=== PATIENT | female | born 1985 | race Caucasian/White ===

== ENCOUNTER 2019-01-02 10:01 | Inpatient (IN) | payer OTHER ==
[~2019-01-02] VITALS: Ht 165.1 cm; Wt 132.7 kg
[~2019-01-02 10:01] MED LIST: MULTI VITAMINS1 TAB PO
[2019-01-24] VITALS (701 sets, daily range): BP systolic 11–137; BP diastolic 62–76; PULSE 72–84; TEMP 97.7–98.1; O2SAT 89–99
[2019-01-24] MEDS ORDERED: LAXATIVE FOR WOM5 MG PO (05:58)
--- NOTE | 2019-01-24 06:14 | NUR ---
The patient ambualted back to [facility] independently using a steady gait and appeared to tolerate the activity well. Vital signs obtained. Consent signed. Urine sample obtained to check for with a negative result. 18G IV started in left hand with one stick, LR infusing without difficulty. Heart Reg. Lungs clear. Bowel sounds audible. brought back to be at her bedside. Call light is within reach. The patient denies any further needs at this time. Will continue to monitor the patient.
--- NOTE | 2019-01-24 11:50 | NUR ---
Report received from PACU and pt brought to ICU room 3 by bed. Pt placed on monitor and assessment complete. See charting. POLICE OR PATROL PARK OFFICER started and pt instructed on use, also provided education. Will continue to follow.
--- NOTE | 2019-01-24 16:18 | NUR ---
Pt ambulated length of walter and back. Tolerated well. Is now sitting up in chair. Will continue to follow.
--- NOTE | 2019-01-24 19:17 | NUR ---
Report given to Gregory BRAND and Levy and care transfered.
--- NOTE | 2019-01-24 20:00 | NUR ---
PATIENT RESTING VISITING WITH FAMILY, PATIENT IS PLEASENT AND DENIES DISCOMFORT
[2019-01-25] VITALS (524 sets, daily range): BP systolic 110–130; BP diastolic 55–79; PULSE 71–87; TEMP 97.8–98.8; O2SAT 87–99
--- NOTE | 2019-01-25 00:32 | NUR ---
PATIENT ASLEEP, AWAKENS EASILY, PATIENT STATES PAIN INCREASING AT SURGICAL SITES, RIKKI DRAIN HAS SCANT FLOW RED, ABDOMIN SOFT, SITES SECURED AND BANDAGED
[2019-01-25 06:47] LABS: BASO % 0.2 % (0.0-2.0); EOS % 0.3 % (0-4.0); GRAN # 6.4 (1.4-6.5); GRAN % 69.2 % (42.2-75.2); HEMOGLOBIN 11.6 g/dl (12.5-16.0); LYMPH # 2.1 (1.2-3.4); LYMPH % 22.3 % (20.0-51.0); MEAN CELL VOLUME 86 fl (80.0-100.0); MEAN CORPUSCULAR HEMOGLOBIN 28 pg (27.0-31.0); MEAN CORPUSCULAR HGB CONC 33 g/dl (33.0-37.0); MEAN PLATELET VOLUME 10.2 fl (7.4-10.4); MONO # 0.7 (0.1-0.6); MONO % 7.8 % (1.7-9.3); PLATELET COUNT 246 K/mm3 (130-400); RED BLOOD COUNT 4.11 M/mm3 (4.10-5.30); REDCELL DISTRIBUTION WIDTH-CV 14.1 % (11.5-14.5)
[2019-01-25 06:51] LABS: ALBUMIN 3.7 gm/dL (3.5-5.0); BILIRUBIN,TOTAL 0.5 mg/dL (0.0-1.0); CALCIUM 8.4 mg/dL (8.4-10.2); CREATININE, serum 0.61 (0.52-1.25); POTASSIUM 3.5 mmol/L (3.4-5.0); TOTAL PROTEIN 6.7 gm/dL (6.4-8.2)
[2019-01-25 07:00] LABS: HEMATOCRIT 35.3 % (37.0-47.0)
--- NOTE | 2019-01-25 07:10 | NUR ---
Bedside report recieved from Levy BRAND and Gregory BRAND. Patient awake in bed, participates in report. MIG TIG WELDER verified with Gregory BRAND, patient states understanding on how to use. Denies needs or pain at this time. Call light and MIG TIG WELDER demand button in reach.
--- NOTE | 2019-01-25 19:40 | NUR ---
Report given to Rosette RN. Will transfer up to surgical floor.
--- NOTE | 2019-01-25 19:50 | NUR ---
Patient taken up to room 348 on surgical floor, nurse notified of arrival.
--- NOTE | 2019-01-25 20:00 | NUR ---
Patients IV site to left hand swollen and sore. DC'd at this time.
--- NOTE | 2019-01-25 21:00 | NUR ---
Restarted #22 Insyte to right hand on first attempt. IVF connected and infusing without problem. Patient taking clear liquids without problem. Has voided x1 since arrival to floor. RIKKI drain compressed and to bulb suction. Lap sites with bandaids D/I.
[2019-01-26] VITALS (188 sets, daily range): BP systolic 99–130; BP diastolic 43–66; PULSE 73–80; TEMP 98.1–98.4; O2SAT 100
--- NOTE | 2019-01-26 00:45 | NUR ---
MEDICATED WITH NORCO 5/325 1 TAB FOR PAIN 5/10 TO ABDOMEN.
--- NOTE | 2019-01-26 04:45 | NUR ---
RIKKI DRAINAGE SENT TO LAB. PATIENT RESTING WELL.
--- NOTE | 2019-01-26 06:05 | NUR ---
Patient takes Barre 5/325mg 1 tab for pain 5/10 to abdomen.
--- NOTE | 2019-01-26 08:00 | NUR ---
PATIENT IS RESTING IN BED THIS MORNING. PATIENT IS A&OX4. VSS. BOWEL SOUNDS ACTIVE ALL FOUR QUADRANTS. PATIENT TOLERATING POST-OP GASTRIC BYPASS DIET WITHOUT ANY COMPLAINTS OF N/V. ABDOMINAL LAP SITES X5 DRESSED WITH BANDAIDS AND ARE CD&I. RIGHT-SIDED ABDOMINAL RIKKI DRAIN TO BULB SUCTION WITH BRIGHT RED DRAINAGE PRESENT IN THE RIKKI BULB. POSITIVE PEDAL PULSES EQUAL BILATERALLY. SCD'S TO BLE. IV FLUIDS INFUSING TO RIGHT HAND IV VIA PUMP. CALL LIGHT WITHIN REACH. PATIENT DENIES ANY NEEDS AT THIS TIME.
[2019-01-26 09:55] LABS: BASO % 0.3 % (0.0-2.0); EOS # 0.1 (0.0-0.7); EOS % 2.2 % (0-4.0); GRAN % 63.7 % (42.2-75.2); HEMOGLOBIN 11.6 g/dl (12.5-16.0); LYMPH # 1.6 (1.2-3.4); MEAN CELL VOLUME 86 fl (80.0-100.0); MEAN CORPUSCULAR HEMOGLOBIN 28 pg (27.0-31.0); MEAN CORPUSCULAR HGB CONC 33 g/dl (33.0-37.0); MEAN PLATELET VOLUME 10.3 fl (7.4-10.4); MONO # 0.5 (0.1-0.6); MONO % 8.5 % (1.7-9.3); PLATELET COUNT 237 K/mm3 (130-400); RED BLOOD COUNT 4.11 M/mm3 (4.10-5.30); REDCELL DISTRIBUTION WIDTH-CV 14.1 % (11.5-14.5)
[2019-01-26 09:58] LABS: HEMATOCRIT 35.3 % (37.0-47.0)
--- NOTE | 2019-01-26 10:28 | NUR ---
Initial visit; Patient thanked Manufacturing Industrial Engineer for looking in on her and offering encouragement and God's blessings.
[2019-01-26] MEDS ORDERED: PRILOSEC 20MG20 MG PO (10:35)
[2019-01-26] MEDS ORDERED: ZOFRAN 4MG T4 MG/TAB PO (10:35)
[2019-01-26] MEDS ORDERED: NORCO 325 MG-51 TAB PO (10:35)
--- NOTE | 2019-01-26 12:17 | NUR ---
RIGHT HAND INT DISCONTINUED PER PENDING DISCHARGE. TIP INTACT. PATIENT TOLERATED WELL.
--- NOTE | 2019-01-26 12:50 | NUR ---
Debridging Machine Operator met with patient and patient's , Ishmael (ph#[phone]) to discuss discharge planning. Patient lives on [place] with her and utilizes [facility] for primary care and medications. Patient is independent with [facility] and does not use any DME. Patient does not have Advance Directives in place but states she has the paperwork to fill out. Patient will return home upon discharge.
--- NOTE | 2019-01-26 13:30 | NUR ---
DISCHARGE INSTRUCTIONS REVIEWED WITH PATIENT AND . ALL QUESTIONS ANSWERED. PATIENT PERSONAL BELONGINGS GATHERED.
--- NOTE | 2019-01-26 14:00 | NUR ---
PATIENT TAKEN TO PERSONAL VEHICLE VIA WHEELCHAIR BY SURGICAL STAFF. PATIENT DISCHARGED.
[2019-01-29] MEDS ORDERED: CHEWABLE VITE W1 CTB PO (14:01)
== END 2019-01-26 14:00 | disposition home or self-care (01) | DRG 621 ==
LOC: INPTSU 01-24 05:30 → SURG 01-24 07:30 → ICU 01-24 11:25 → SURG 01-25 19:48
PROVIDERS: ADMIT Surgery
PROC: 8E0W4CZ Robotic Assisted Procedure of Trunk Region, Percutaneous Endoscopic Approach (ICD-10-PCS; 2019-01-24)
PROC: 0D164ZA Bypass Stomach to Jejunum, Percutaneous Endoscopic Approach (ICD-10-PCS; principal; 2019-01-24 07:30)
DX: E66.01 Morbid (severe) obesity due to excess calories (principal); Z68.43 Body mass index [BMI] 50.0-59.9, adult
CPT/HCPCS: A4314; C9113; J0690; J1170; J1650; J1956; J2405; J2704; J3010; J3480; J7120

== ENCOUNTER → 2019-01-09 | Outpatient (CLI) | payer OTHER | LOC: LIGHT 01-08 15:56 | DX: Z01.818 Encounter for other preprocedural examination (principal); E66.01 Morbid (severe) obesity due to excess calories; Z68.43 Body mass index [BMI] 50.0-59.9, adult; Z71.3 Dietary counseling and surveillance ==

== ENCOUNTER → 2019-08-27 | Outpatient (CLI) | payer OTHER ==
[~2019-08-27] VITALS: Ht 165.1 cm; Wt 104.1 kg
[~2019-08-27] MED LIST changes: +CHEWABLE VITE W1 CTB PO; +LAXATIVE FOR WOM5 MG PO; +NORCO 325 MG-51 TAB PO; +PRILOSEC 20MG20 MG PO; +ZOFRAN 4MG T4 MG/TAB PO
[2019-08-27 14:06] VITALS: BP 114/70; PULSE 60
== END ==
LOC: LIGHT 04-23 15:16
DX: E66.01 Morbid (severe) obesity due to excess calories (principal); Z68.38 Body mass index [BMI] 38.0-38.9, adult; Z98.84 Bariatric surgery status
CPT/HCPCS: G0463